=== PATIENT | female | born 1980 | race Caucasian/White ===

== ENCOUNTER → 2023-02-24 | Day surgery (SDC) | payer BC ==
[~2023-02-24] MED LIST: EPINEPHrine 1 MG/ML AMP ONE; Gadobenate Dimeglumine 529 MG/1 ML (5 ML SDV) ONE; Lidocaine 1% PF 5 ML VIAL ONE
== END ==
LOC: CSHRAD 09:58
PROVIDERS: ATTEND Orthopaedic Surgery
PROC: BP08YZZ Plain Radiography of Right Shoulder using Other Contrast (ICD-10-PCS; principal; 2023-02-24)
DX: M75.51 Bursitis of right shoulder (principal); M24.811 Other specific joint derangements of right shoulder, not elsewhere classified
CPT/HCPCS: 23350; A9577; J0171; J7050